=== PATIENT | female | born 1950 | race Caucasian/White ===

== ENCOUNTER 2017-07-17 10:40 | Outpatient (CLI) | payer MEDICARE, BC ==
--- NOTE | 2017-07-17 14:30 | CT Report ---
CT ABDOMEN AND PELVIS WITHOUT CONTRAST: 07/17/2017 CLINICAL INDICATION: Right-sided abdominal pain. TECHNIQUE: Axial CT images of the abdomen and pelvis were obtained without oral or intravenous contrast. COMPARISON: No previous CT is available for comparison. FINDINGS: Limited evaluation of the lung bases is unremarkable. ABDOMEN: Allowing for the lack of intravenous contrast enhancement, the liver, spleen, pancreas, kidneys and adrenal glands are unremarkable. No nephrolithiasis or hydronephrosis is seen. No hydroureter is present. The gallbladder is not dilated. No bowel dilatation, free gas, or free fluid is present. No abdominal adenopathy is seen. PELVIS: The patient is status post hysterectomy. No pelvic adenopathy or free fluid is present. Osseous structures demonstrate degenerative changes. IMPRESSION: NO EVIDENT ETIOLOGY FOR PATIENT'S RIGHT-SIDED PAIN. NO NEPHROLITHIASIS OR HYDRONEPHROSIS. CT DOSE REDUCTION STATEMENT In accordance with CT protocol optimization, one or more of the following dose reduction techniques were utilized for this exam: automated exposure control, adjustment of mA and/or KV based on patient size, or use of iterative reconstructive technique. TD: 07/17/2017 14:30
== END 2017-07-17 10:41 | disposition home or self-care (01) ==
LOC: DI 10:40
PROVIDERS: ATTEND Nurse Practitioner Family
DX: R10.9 Unspecified abdominal pain (principal)
CPT/HCPCS: 74176

== ENCOUNTER 2017-10-10 11:51 | Outpatient (CLI) | payer MEDICARE, BC ==
[2017-10-10 12:15] LABS: BASOPHILS % (AUTO) 0.9 %; EOSINOPHILS % (AUTO) 0.6 %; HGB - HEMOGLOBIN 8.4 g/dL (12.0-16.0); LYMPHOCYTES # (AUTO) 1.1 10^3/uL (1.5-3.5); LYMPHOCYTES % (AUTO) 29.4 %; MEAN CORPUSCULAR HEMOGLOBIN 21.7 pg (27.0-31.0); MEAN CORPUSCULAR HGB CONC 30.5 g/dL (32.0-36.0); MEAN CORPUSCULAR VOLUME 71.2 fL (81.0-99.0); MEAN RETIC VALUE 101.7; MONOCYTES # (AUTO) 0.2 10^3/uL (0.0-1.0); MONOCYTES % (AUTO) 4.6 %; NEUTROPHILS # (AUTO) 2.4 10^3/uL (1.5-6.6); NEUTROPHILS % (AUTO) 64.5 %; PLT - PLATELET COUNT 234 10^3/uL (130-450); RED BLOOD COUNT 3.88 10^6/uL (4.20-5.40); WHITE BLOOD COUNT 3.7 x10^3/uL (4.8-10.8)
[2017-10-10 12:33] LABS: PLATELET ESTIMATE, MANUAL NORMAL (130-450,000) (NORMAL); PLATELET MORPHOLOGY NORMAL APPEARANCE (NORMAL)
[2017-10-12 16:37] LABS: HAPTOGLOBIN 233 mg/dL (43-212)
[2017-10-16 21:21] LABS: METHYLMALONIC ACID 237 nmol/L (87-318)
== END 2017-10-10 11:52 | disposition home or self-care (01) ==
LOC: LAB 11:51
PROVIDERS: ATTEND Nurse Practitioner Family
DX: D64.9 Anemia, unspecified (principal)
CPT/HCPCS: 36415; 81599; 82784; 83010; 83921; 85025; 85044; 86880

== ENCOUNTER 2018-08-21 14:52 | Outpatient (CLI) | payer MEDICARE, BC ==
--- NOTE | 2018-08-22 15:18 | MRI Report ---
Reason: back pain Procedure Date: 08/21/2018 Accession Number: [id number] / [id number] Procedure: MRI - Thoracic Spine W/O CPT Code: FULL RESULT: EXAM: MRI THORACIC SPINE WITHOUT CONTRAST EXAM DATE: 08/21/2018 02:30 PM. CLINICAL HISTORY: Back pain and paresthesias. COMPARISONS: None. TECHNIQUE: Multiplanar, multisequence T1-weighted and fluid-sensitive sequences of the thoracic spine from C7 to L1 without contrast. Other: None. FINDINGS: Some of the images are degraded due to patient-related motion artifact. Spinal Canal: No signal abnormality in the visualized spinal cord. Alignment: Grade 1 anterolisthesis at T1-T2 and T2-T3 by approximately 1 mm. Bone Marrow: There are hemangiomas at the T5 and T6 vertebral bodies. No acute fracture. No marrow edema. Disk Levels/Facets: C7-T1: Mild to moderate left facet arthropathy. Mild to moderate left foraminal stenosis. T1-T2: Mild right and mild to moderate left facet arthropathy. Mild right and mild to moderate left foraminal stenoses. T2-T3: Mild to moderate facet arthropathy. Mild to moderate right and mild left foraminal stenoses. T3-T4: Mild to moderate facet arthropathy. Mild to moderate left and moderate right foraminal stenoses. T4-T5 Mild facet arthropathy. Mild to moderate right foraminal stenosis. T5-T6: Mild facet arthropathy. No stenoses. T6-T7: Mild to moderate right facet arthropathy. No stenoses. T7-T8: Small anterior osteophytes. Mild facet arthropathy. No stenoses. T8-T9: Small posterior left paracentral disk protrusion. Minimal canal narrowing. No foraminal stenoses. T9-T10: Mild to moderate right facet arthropathy. No stenoses. T10-T11: Small anterior osteophytes. Mild to moderate right facet arthropathy. Mild right foraminal stenosis. T11-T12: Unremarkable. T12-L1: Unremarkable. Musculature: Normal. No edema or fatty atrophy. Other: The visualized lungs, mediastinum, and abdominal cavity are unremarkable. IMPRESSION: 1. Multilevel facet arthropathy. 2. Mild to moderate left foraminal stenosis at C7-T1. Mild right and mild to moderate left foraminal stenosis at T1-T2. Mild to moderate right and mild left foraminal stenoses at T2-T3. Mild to moderate left and moderate right foraminal stenoses at T3-T4. T4-T5. RADIA
--- NOTE | 2018-08-22 15:24 | MRI Report ---
Reason: Back pain Procedure Date: 08/21/2018 Accession Number: [id number] / [id number] Procedure: MRI - Lumbar Spine W/O CPT Code: FULL RESULT: EXAM: MRI LUMBAR SPINE WITHOUT CONTRAST EXAM DATE: 08/21/2018 02:30 PM. CLINICAL HISTORY: Low back pain and paresthesias. COMPARISON: None. TECHNIQUE: Multiplanar, multisequence T1-weighted and fluid-sensitive sequences of the lumbar spine from T12 to S1 without contrast. Other: None. FINDINGS: Spinal Canal: The conus terminates at L1-L2. The conus medullaris and cauda equina are unremarkable. Alignment: Grade 1 anterolisthesis at L4-L5 by approximately 3 mm. Mild levoconvex scoliosis. Bone Marrow: Five xqh-lfb-hphfsst lumbar vertebral bodies are assumed. No gross fractures or bone lesions. No bone marrow replacement. 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 Transitional L5 vertebral segment. Mild facet arthropathy. No stenoses. L4-L5: Minimal disk bulge. Severe facet arthropathy. Mild canal stenosis. Mild to moderate right and moderate left foraminal stenoses. L3-L4: Small disk bulge. Mild to moderate facet arthropathy and ligamentum flavum thickening. Mild right and minimal left foraminal stenoses. L2-L3: Small posterior central disk protrusion. Minimal disk bulge. Mild facet arthropathy and small facet joint effusions. Mild canal stenosis. Mild right and minimal left foraminal stenoses. L1-L2: Unremarkable. Musculature: Normal. No edema or fatty atrophy. Other: The partially visualized retroperitoneum is unremarkable. IMPRESSION: 1. Note, transitional anatomy is present at the lumbosacral junction. For the purpose of this report, the transitional segment will be designated as L5 . Prior to any surgical intervention, an intraoperative lateral lumbar spine radiograph with a localizing instrument is recommended. This radiograph should be correlated with the sagittal MR images to avoid any confusion with respect to exact anatomic location. 2. Grade 1 degenerative anterolisthesis at L4-L5. Severe facet arthropathy. Mild canal stenosis. Mild to moderate right and moderate left foraminal stenoses. 3. Small disk bulge at L3-L4. Mild right and minimal left foraminal stenoses. 4. Small posterior central disk protrusion at L2-L3. Mild canal stenosis. Mild right and minimal left foraminal stenoses. Comment: The following findings are so common in adults without low back pain that while we report their presence, they must be interpreted with caution and in the context of the clinical situation. (Reference Randall et al, Spine 2001) Prevalence of findings in patients without low back pain: Disk degeneration (any evidence): 92% Disk desiccation/T2 signal loss: 83% Disk height loss: 56% Disk bulge: 64% Disk protrusion: 32% Annular tear/high intensity zone: 38% RADIA
== END 2018-08-21 14:53 | disposition home or self-care (01) ==
LOC: DI 14:52
PROVIDERS: ATTEND Surgery
DX: M47.9 Spondylosis, unspecified (principal); M51.24 Other intervertebral disc displacement, thoracic region; M48.04 Spinal stenosis, thoracic region; M51.26 Other intervertebral disc displacement, lumbar region; M43.16 Spondylolisthesis, lumbar region; M48.061 Spinal stenosis, lumbar region without neurogenic claudication
CPT/HCPCS: 72146; 72148

== ENCOUNTER 2019-02-04 10:22 | Outpatient (CLI) | payer MEDICARE, BC ==
--- NOTE | 2019-02-04 11:21 | Mammography Report ---
Reason: SCREENING FOR MALIGNANT NEOPLASM OF BREAST Procedure Date: 02/04/2019 Accession Number: [id number] / [id number] Procedure: MGS - Screening Mammo Dig Bilat CPT Code: FULL RESULT: EXAM: Screening Mammo Dig Bilat DATE: 02/04/2019 10:42 AM CLINICAL HISTORY: Routine screening. No reported personal or family history of breast cancer. TECHNIQUE: (B) - Bilateral CC and MLO views were obtained. COMPARISON: 01/24/2016 through 03/29/2010 PARENCHYMAL PATTERN: (D) - The breasts demonstrate heterogeneously dense fibroglandular parenchyma bilaterally. FINDINGS: Bilateral breasts: There are no suspicious masses, calcifications, or areas of distortion. IMPRESSION: Negative examination. BI-RADS category 1. RECOMMENDATION: (ANNUAL) - Recommend routine annual screening mammography. BI-RADS CATEGORY: STANDARD QUALIFYING STATEMENTS: 1. This examination was reviewed with the aid of Computer-Aided Detection (CAD). 2. A negative or benign imaging report should not preclude biopsy if clinically suspicious findings are present. 3. Dense breasts may obscure an underlying neoplasm. 4. This examination was reviewed without the aid of 3D breast imaging (tomosynthesis).
== END 2019-02-04 10:23 | disposition home or self-care (01) ==
LOC: DI.S 10:22
PROVIDERS: ATTEND Physician Assistant
DX: Z12.31 Encounter for screening mammogram for malignant neoplasm of breast (principal)
CPT/HCPCS: 77067

== ENCOUNTER 2020-12-08 11:02 | Outpatient (CLI) | payer MEDICARE, BC ==
--- NOTE | 2020-12-09 15:48 | Mammography Report ---
BILATERAL DIGITAL SCREENING MAMMOGRAM 3D/2D WITH EXAGGERATED CC: 12/08/2020 CLINICAL: Routine screening. Comparison is made to exams dated: 02/04/2019 mammogram, 01/24/2016 mammogram, 08/17/2014 mammogram, mammogram, 03/11/2012 mammogram, and 03/06/2011 mammogram - [facility]. The tissue of both breasts is predominantly fatty. No significant masses, calcifications, or other findings are seen in either breast. There has been no significant interval change. IMPRESSION: NEGATIVE There is no mammographic evidence of malignancy. A 1 year screening mammogram is recommended. This exam was interpreted at Station ID: [id number]. NOTE: For mammograms, a report in lay terms will be sent to the patient. Approximately 15% of breast malignancies will not be visualized mammographically. In the management of a palpable breast mass, a negative mammogram must not discourage biopsy of a clinically suspicious lesion. Electronically Signed By: Americo Giles M.D., jr/cathleen:12/08/2020 12:37:26 ACR BI-RADS Category 1: Negative 3341F PARENCHYMAL PATTERN: (F) - The breast(s) demonstrate(s) diffuse fatty replacement. BI-RADS CATEGORY: (1) - 1 RECOMMENDATION: (ANNUAL) - Recommend routine annual screening mammography. [id number] 1 year screening LATERALITY: (B)
== END 2020-12-08 11:03 | disposition home or self-care (01) ==
LOC: DI.S 11:02
DX: Z12.31 Encounter for screening mammogram for malignant neoplasm of breast (principal)

== ENCOUNTER 2021-03-04 12:18 | Emergency (ER) | payer MEDICARE, OTHER ==
--- NOTE | 2021-03-04 13:09 | ED Physician Documentation ---
PD HPI SYNCOPE - Stated complaint Stated Complaint: GLF - FOREHEAD LAC - Chief complaint Chief Complaint: Neuro - History obtained from History obtained from: Patient - History of Present Illness Witnessed: Witnessed Timing - onset: Today Duration: Seconds Preceding symptoms: Diaphoresis, Abdominal pain, Nausea / vomiting, Light headed, Other (diarrhea) Associated symptoms: Nausea / vomiting, Abdominal pain, Other (diarrhea) Contributing factors: Other (GI symptom complex started last night) Injury occurred: Fell, Head injury. No: Neck injury, Bit tongue Similar symptoms before: No diagnosis, Work up / diagnostics (extensive work up of symptoms has included GI work up, imaging and dietary modification.) Recently seen: Clinic (sent here from the walk in clinic with head injury headache syncope and N/V/D) - Additional information Additional information: 71-year-old female who has episodic abdominal pain associated with nausea vomiting diarrhea began to have an episode yesterday evening when she went to bed. She was kept awake by it most of the night this morning when she went to get onto the commode she had flow-through diarrhea, vomiting and she had a lot of abdominal cramping. She had a syncopal episode while she was sitting on the commode. She fell forward and struck her her head on a tile floor. She has a laceration to her head, she denies any neck pain, denies any numbness or tingling anywhere else. She has had these episodes of abdominal pain nausea and vomiting and diarrhea similarly over the past 3 years and she has had an exte nsive work-up of this. She indicates that the most likely reason she has these episodes has to do with some scar tissue in the right lower quadrant related to two prior C-sections and hysterectomy. She has had a modification of her diet to include absence of fiber. She does not know of anything specific that triggered the episode last night. Feels back to normal with a bad headache. Review of Systems Constitutional: denies: Fever Eyes: denies: Decreased vision Ears: denies: Ear pain Nose: denies: Congestion Throat: denies: Sore throat Cardiac: denies: Chest pain / pressure, Palpitations Respiratory: denies: Dyspnea, Cough GI: reports: Abdominal Pain, Nausea, Vomiting, Diarrhea : denies: Dysuria, Frequency Skin: reports: Laceration (s). denies: Rash Musculoskeletal: denies: Neck pain, Back pain, Extremity pain Neurologic: reports: Headache, Head injury, LOC. denies: Generalized weakness, Focal weakness, Numbness PD PAST MEDICAL HISTORY - Allergies Allergies/Adverse Reactions: Allergies Allergy/AdvReac Type Severity Reaction Status Date / Time codeine AdvReac Nausea Verified 03/04/21 12:32 PD ED PE NORMAL - Vitals Vital signs reviewed: Yes (hypertensive ) - General General: Alert and oriented X 3, No acute distress, Well developed/nourished, Other ([id number] female her left eyebrow and a black and blue eye is conversant and does not appear to be in pain.) - HEENT HEENT: PERRL, EOMI, Other (3cm laceration above the lateral aspect of the left eyebrow. ) - Neck Neck: Supple, no meningeal sign, No bony TTP - Cardiac Cardiac: RRR, No murmur - Respiratory Respiratory: No respiratory distress, Clear bilaterally - Abdomen Abdomen: Normal bowel sounds, Soft, Non tender, Non distended, No organomegaly - Back Back: No CVA TTP, No spinal TTP - Derm Derm: Normal color, Warm and dry, No rash - Extremities Extremities: No deformity, No edema - Neuro Neuro: Alert and oriented X 3, cyber policy and strategy planner 2-12 intact, No motor deficit, No sensory deficit, Normal speech Eye Opening: Spontaneous Motor: Obeys Commands Verbal: Oriented GCS Score: 15 - Psych Psych: Normal mood, Normal affect Results - Vitals Vitals: Vital Signs - 24 hr 03/04/21 03/04/21 12:28 14:32 Temperature 36.3 C L Heart Rate 84 75 Respiratory 16 14 Rate Blood Pressure 140/79 H 139/80 H O2 Saturation 98 100 Oxygen O2 Source Room air - EKG (time done) 1314 Rate: Rate (enter#) (74) Rhythm: NSR QRS: Poor R wave progression Ischemia: Q waves Compare to prior EKG: Old EKG unavailable Computer interpretation: Agree with computer - Labs Labs: Laboratory Tests 03/04/21 03/04/21 13:22 13:22 WBC 5.9 RBC 4.64 Hgb 12.4 Hct 39.8 MCV 85.8 MCH 26.7 L MCHC 31.2 L RDW 14.6 Plt Count 237 MPV 11.3 H Neut # (Auto) 4.7 Lymph # (Auto) 1.0 L [place] # (Auto) 0.3 Eos # (Auto) 0.0 Baso # (Auto) 0.0 Absolute Nucleated RBC 0.00 Nucleated RBC % 0.0 Sodium 139 Potassium 3.9 Chloride 104 Carbon Dioxide 25 Anion Gap 10.0 BUN 15 Creatinine 0.7 Estimated GFR (MDRD) 82 L Glucose 92 Calcium 9.1 Total Bilirubin 0.7 AST 22 ALT 21 Alkaline Phosphatase 87 Total Protein 6.9 Albumin 4.0 Globulin 2.9 Albumin/Globulin Ratio 1.4 Lipase 23 - Rads (name of study) CT head Radiology: Prelim report reviewed (Impression: CT head without acute intracranial abnormalities or acute calvarial fractures. Age-related senescent changes and sequela of chronic small vessel ischemic disease.), EMP read indepedently, See rad report Procedures - Laceration (location) left forehead Length in cm: 2 Wound type: Linear, Into subcut fat, Clean Neurovascular status: Sensory intact, Motor intact, Vascular intact Anesthesia: Lidocaine 1%, With bicarb Wound preparation: Hibiclens, Irrigated copiously NS, Wound explored, To the base Skin layer closure: Nylon, Interrupted, Size #-0 - enter number (5-0) Other: Patient tolerated well, No complications, Neurovascular intact, Dressing applied - IVC sono (time) 1310 Bedside IVC sono: IVC measures (cm) (1.01), IVC collapsed c insp (cm) (complete), Dehydration (est 1-2 litere deficit) PD MEDICAL DECISION MAKING - ED course Complexity details: reviewed results, re-evaluated patient, considered differential, d/w patient ED course: 71-year-old female with a syncopal episode while having a painful episode on the commode is a laceration above her left eye she has a significant headache associated with a head injury and loss of consciousness. She is no longer nauseous she is found to be dehydrated on interrogation the inferior vena cava. An IV line is begun she is administered intravenous saline and electrocardiograms obtained as well as some blood work and a CT scan of the head. All studies are reassuring. We did interrogate the inferior vena cava and found her to be dehydrated on the order of 1 to 2 L of saline she is given a liter of saline while awaiting her CT results. Sutured the patient's forehead she felt much improved. Her abdominal episode appears over at this time. She says this would be typical of her prior episodes. Departure - Departure Disposition: 01 Home, Self Care Clinical Impression: Dehydration Syncope Qualifiers: Syncope type: vasovagal syncope Qualified Code(s): R55 - Syncope and collapse Forehead laceration Qualifiers: Encounter type: initial encounter Qualified Code(s): S01.81XA - Laceration without foreign body of other part of head, initial encounter Condition: Stable Instructions: ED Laceration Facial Sutr Tape, ED Syncope Vasovagal, ED Dehydration Follow-Up: Miguel Venegas MD [Primary Care Provider] - Comments: Sutures will need to be removed in 5 to 7 days
[2021-03-04 13:34] LABS: BASOPHILS % (AUTO) 0.5 %; EOSINOPHILS % (AUTO) 0.2 %; HCT - HEMATOCRIT 39.8 % (37.0-47.0); HGB - HEMOGLOBIN 12.4 g/dL (12.0-16.0); LYMPHOCYTES % (AUTO) 16.3 %; MEAN CORPUSCULAR HEMOGLOBIN 26.7 pg (27.0-31.0); MEAN CORPUSCULAR HGB CONC 31.2 g/dL (32.0-36.0); MEAN CORPUSCULAR VOLUME 85.8 fL (81.0-99.0); MEAN PLATELET VOLUME 11.3 fL (7.9-10.8); MONOCYTES # (AUTO) 0.3 10^3/uL (0.0-1.0); MONOCYTES % (AUTO) 4.5 %; NEUTROPHILS # (AUTO) 4.7 10^3/uL (1.5-6.6); NEUTROPHILS % (AUTO) 78.3 %; PLT - PLATELET COUNT 237 10^3/uL (130-450); RED BLOOD COUNT 4.64 10^6/uL (4.20-5.40); RED CELL DISTRIBUTION WIDTH 14.6 % (12.0-15.0); WHITE BLOOD COUNT 5.9 x10^3/uL (4.8-10.8)
[2021-03-04 13:53] LABS: ALBUMIN/GLOBULIN RATIO 1.4 (1.0-2.2); BILIRUBIN,TOTAL 0.7 mg/dL (0.2-1.0); CALCIUM 9.1 mg/dL (8.5-10.3); CREATININE 0.7 mg/dL (0.4-1.0); POTASSIUM 3.9 mmol/L (3.5-5.0); TOTAL PROTEIN 6.9 g/dL (6.7-8.2)
[2021-03-04] MEDS ORDERED: SODIUM CHLORIDE 0.9% 1,000 ML IV STA (14:16)
[2021-03-04] MEDS ORDERED: BUFFERED LIDOCAINE 10 ML SYRINGE SUBQ STA (15:01)
[2021-03-04 15:22] VITALS: BP 139/80
--- NOTE | 2021-03-04 15:37 | CT Report ---
PROCEDURE: HEAD WO INDICATIONS: concussion headache TECHNIQUE: Noncontrast 4.5 mm thick angled axial sections acquired from the foramen magnum to the vertex. For r adiation dose reduction, the following was used: automated exposure control, adjustment of mA and/or kV according to patient size. COMPARISON: None. FINDINGS: Image quality: Excellent. CSF spaces: Basal cisterns are patent. No extra-axial fluid collections. Ventricles are normal in size and shape. Brain: No midline shift. No intracranial masses or hemorrhage. Gamino-white matter interface is norm al. Age-related senescent changes with diffuse cortical volume loss. Subcortical and periventricular white matter hypoattenuation compatible with sequela of chronic small vessel ischemic disease. Athero sclerotic calcifications of the intracranial segments of the bilateral internal carotid arteries. Skull and face: Calvarium and visualized facial bones are intact, without suspicious lesions. Sinuses: Visualized sinuses and mastoids are clear. IMPRESSION: CT head without acute intracranial abnormalities or acute calvarial fractures. Age-related senescent changes and sequela of chronic small vessel ischemic disease. Reviewed by: Woodrow Robb MD on 03/04/2021 3:36 PM PDT Approved by: Woodrow Robb MD on 03/04/2021 3:36 PM PDT Station ID: [id number]
[2021-03-04] MEDS ORDERED: TETANUS/DIPHTHERIA/PERTUSSIS 0.5 ML SYRINGE IM ONE (16:43)
== END 2021-03-04 17:00 | disposition home or self-care (01) ==
LOC: ED 12:18
DX: R55 Syncope and collapse (principal); E86.0 Dehydration; S01.81XA Laceration without foreign body of other part of head, initial encounter; S09.90XA Unspecified injury of head, initial encounter; W18.12XA Fall from or off toilet with subsequent striking against object, initial encounter; Y93.E8 Activity, other personal hygiene; Y92.002 Bathroom of unspecified non-institutional (private) residence as the place of occurrence of the external cause; R11.2 Nausea with vomiting, unspecified; R19.7 Diarrhea, unspecified
CPT/HCPCS: 12011; 36415; 80053; 83690; 85025; 93005; 99282

== ENCOUNTER 2021-08-16 14:01 | Outpatient (CLI) | payer MEDICARE, OTHER ==
--- NOTE | 2021-08-16 14:35 | XRAY Report ---
PROCEDURE: Chest 2 View X-Ray INDICATIONS: BRONCHITIS TECHNIQUE: 2 view(s) of the chest. COMPARISON: January 19, 2016 FINDINGS: SUPPORT DEVICES: None. LUNGS/PLEURA: No focal consolidation, pleural effusion or space-occupying pneumothorax. MEDIASTINUM: The cardiomediastinal silhouette is within normal limits. BONES/SOFT TISSUES: No acute abnormality. IMPRESSION: 1.No acute cardiopulmonary abnormality. Reviewed by: Patel Amos MD on 08/16/2021 2:34 PM PDT Approved by: Patel Amos MD on 08/16/2021 2:34 PM PDT Station ID: [id number]
== END 2021-08-16 14:02 | disposition home or self-care (01) ==
LOC: DI.S 14:01
PROVIDERS: ATTEND Nurse Practitioner Family
DX: J20.9 Acute bronchitis, unspecified (principal)

== ENCOUNTER 2021-09-20 03:46 | Outpatient (CLI) | payer MEDICARE, OTHER | END 2021-09-20 03:47 | disposition critical access hospital (66) | LOC: EMS 03:46 | DX: S09.90XA Unspecified injury of head, initial encounter (principal); S01.21XA Laceration without foreign body of nose, initial encounter; S01.81XA Laceration without foreign body of other part of head, initial encounter; W18.39XA Other fall on same level, initial encounter; Y92.002 Bathroom of unspecified non-institutional (private) residence as the place of occurrence of the external cause; R55 Syncope and collapse; R11.2 Nausea with vomiting, unspecified; R51.9 Headache, unspecified; M54.2 Cervicalgia | CPT/HCPCS: A0425; A0427 ==

== ENCOUNTER 2021-09-20 04:10 | Emergency (ER) | payer MEDICARE, OTHER ==
--- NOTE | 2021-09-20 04:52 | ED Physician Documentation ---
PD HPI SYNCOPE - Stated complaint Stated Complaint: N/V, SYNCOPE, HEAD INJURY - Chief complaint Chief Complaint: Neuro - History obtained from History obtained from: Patient - History of Present Illness Witnessed: Unwitnessed Timing - onset: How many minutes ago (approximately 30-40 minutes SHROUD LINE TIER) Preceding symptoms: None Associated symptoms: Headache Contributing factors: Just stood up Injury occurred: Fell Treatment SHROUD LINE TIER: C spine precautions Similar symptoms before: Has not had sx before Recently seen: Not recently seen - Additional information Additional information: patient woke up from sleep less than 1 hour SHROUD LINE TIER, got up to use bathroom and had syncopal episode. Patient does not recall any prodrome such as lightheadedness, diaphoresis, weakness. Spouse heard patient fall and found her on ground but responding, and he called 911. FSBS 130s per EMS. Patient c/o generalized headache as well as neck and upper back pain. She is in cervical collar placed by EMS. Denies h/o similar symptoms Review of Systems Constitutional: reports: Reviewed and negative Eyes: reports: Reviewed and negative Ears: reports: Reviewed and negative Nose: denies: Epistaxis Cardiac: reports: Reviewed and negative Respiratory: reports: Reviewed and negative GI: reports: Reviewed and negative Skin: reports: Laceration (s) (upper lip) Musculoskeletal: reports: Neck pain, Back pain. denies: Extremity pain, Joint pain, Extremity swelling, Joint swelling Neurologic: reports: Syncope, Headache, Head injury, LOC. denies: Generalized weakness, Focal weakness, Numbness PD PAST MEDICAL HISTORY - Past Medical History Past Medical History: Yes Psych: Depression, Anxiety - Past Surgical History Past Surgical History: Yes Ortho: Knee replacement /MANAGER OF DEVELOPMENT: section, Hysterectomy - Present Medications Home Medications: Ambulatory Orders Medication Instructions Recorded Confirmed Escitalopram [Lexapro] 10 mg PO DAILY 09/20/21 09/20/21 Zolpidem Tartrate [Ambien] 10 mg PO DAILY 09/20/21 09/20/21 - Allergies Allergies/Adverse Reactions: Allergies Allergy/AdvReac Type Severity Reaction Status Date / Time codeine AdvReac Nausea Verified 09/20/21 04:18 - Social History Does the pt smoke?: No Smoking Status: Never smoker Does the pt drink ETOH?: Yes Does the pt have substance abuse?: No - Immunizations Immunizations: TDAP >10years/unknown PD ED PE NORMAL - Vitals Vital signs reviewed: Yes - General General: Alert and oriented X 3, No acute distress, Well developed/nourished - HEENT HEENT: PERRL, EOMI, Moist mucous membranes - Cardiac Cardiac: RRR, No murmur, No gallop, No rub - Respiratory Respiratory: No respiratory distress, Clear bilaterally - Abdomen Abdomen: Soft, Non tender - Extremities Extremities: No deformity, No tenderness to palpate, Normal ROM s pain - Neuro Neuro: Alert and oriented X 3, stationary engineer 2-12 intact, No motor deficit, No sensory deficit, Normal speech Eye Opening: Spontaneous Motor: Obeys Commands Verbal: Oriented GCS Score: 15 PD ED PE EXPANDED - HEENT HEENT Visual: 1 - swelling, tenderness 2 - laceration (superficial 1cm) 3 - laceration (1 cm laceration , up to but not across petra border) Results - Vitals Vitals: Oxygen O2 Source Room air - EKG (time done) No standard instances Rate: Rate (enter#) (71) Rhythm: NSR Lewis: LAD Intervals: Normal CO QRS: Normal Ischemia: Normal ST segments, Q waves (II, III, aVF) - Labs Labs: Laboratory Tests 09/20/21 09/20/21 09/20/21 05:47 05:47 05:47 WBC 10.2 RBC 4.56 Hgb 12.2 Hct 39.4 MCV 86.4 MCH 26.8 L MCHC 31.0 L RDW 14.8 Plt Count 240 MPV 10.5 Neut # (Auto) 8.3 H Lymph # (Auto) 1.2 L [place] # (Auto) 0.5 Eos # (Auto) 0.0 Baso # (Auto) 0.0 Absolute Nucleated RBC 0.00 Nucleated RBC % 0.0 Sodium 138 Potassium 3.7 Chloride 100 L Carbon Dioxide 27 Anion Gap 11.0 BUN 18 Creatinine 0.8 Estimated GFR (MDRD) 71 L Glucose 118 H Calcium 9.4 Troponin I High Sens 2.8 - Rads (name of study) chest xray Radiology: Prelim report reviewed, See rad report CT head Radiology: Prelim report reviewed, See rad report CT cervical spine Radiology: Prelim report reviewed, See rad report Procedures - Laceration (location) Lip Length in cm: 1 Wound type: Linear, Clean Skin layer closure: Interrupted, Size #-0 - enter number (5-0), Other (vicryl) Other: Patient tolerated well, No complications PD MEDICAL DECISION MAKING - ED course Complexity details: reviewed results, re-evaluated patient, considered differential, d/w patient ED course: presents after syncopal episode with reassuring/unremarkable blood tests (including his-cTn), EKG, and CXR. She has a superficial linear nasal laceration which is well-approximated even with manipulation and thus this is not requiring repair. Upper lip laceration does gape and thus it is repaired (sutured). No acute findings on CTH, CT cervical spine. Results d/w patient, return precautions reviewed, instructed to follow up with PMD for suture removal as well as reevaluation for syncope Departure - Departure Disposition: 01 Home, Self Care Clinical Impression: Syncope Qualifiers: Syncope type: unspecified Qualified Code(s): R55 - Syncope and collapse Lip laceration Qualifiers: Encounter type: initial encounter Qualified Code(s): S01.511A - Laceration without foreign body of lip, initial encounter Condition: Good Instructions: ED Laceration Mouth, ED Fainting Unkn Cause Comments: The lip laceration was closed with three stitches. As we discussed, although these are dissolvable stitches, they typically take up to 30 days to dissolve which would be too long to leave in place. I recommend that you follow up with your primary care provider in one week for removal of the stitches. Discharge Date/Time: 09/20/21 08:49
[2021-09-20 05:59] LABS: BASOPHILS % (AUTO) 0.3 %; EOSINOPHILS % (AUTO) 0.2 %; HCT - HEMATOCRIT 39.4 % (37.0-47.0); HGB - HEMOGLOBIN 12.2 g/dL (12.0-16.0); LYMPHOCYTES # (AUTO) 1.2 10^3/uL (1.5-3.5); LYMPHOCYTES % (AUTO) 12.2 %; MEAN CORPUSCULAR HEMOGLOBIN 26.8 pg (27.0-31.0); MEAN CORPUSCULAR VOLUME 86.4 fL (81.0-99.0); MEAN PLATELET VOLUME 10.5 fL (7.9-10.8); MONOCYTES # (AUTO) 0.5 10^3/uL (0.0-1.0); MONOCYTES % (AUTO) 4.9 %; NEUTROPHILS # (AUTO) 8.3 10^3/uL (1.5-6.6); NEUTROPHILS % (AUTO) 81.9 %; PLT - PLATELET COUNT 240 10^3/uL (130-450); RED BLOOD COUNT 4.56 10^6/uL (4.20-5.40); RED CELL DISTRIBUTION WIDTH 14.8 % (12.0-15.0); WHITE BLOOD COUNT 10.2 x10^3/uL (4.8-10.8)
[2021-09-20 06:03] LABS: CALCIUM 9.4 mg/dL (8.5-10.3); CREATININE 0.8 mg/dL (0.4-1.0); POTASSIUM 3.7 mmol/L (3.5-5.0)
[2021-09-20] MEDS ORDERED: LIDOCAINE 1% 2 ML VIAL SUBQ STA (06:27)
[2021-09-20 08:49] VITALS: BP 133/70
--- NOTE | 2021-09-20 08:49 | CT Report ---
PROCEDURE: CERVICAL SPINE WO INDICATIONS: fall, neck pain TECHNIQUE: Noncontrast 3 mm thick sections acquired from the skull base to the T4 level. Sagittal and coronal r eformats were then constructed. For radiation dose reduction, the following was used: automated exp osure control, adjustment of mA and/or kV according to patient size. COMPARISON: None. FINDINGS: Image quality: Excellent. Bones: No fractures or dislocations. There is moderate degenerative disc disease at C4-C5 and C5-C6 . Bilateral facet arthropathy, most pronounced at C4-C5 and C5-C6 on the left. Visualized superior ri bs are intact. Soft tissues: Prevertebral soft tissues are normal in thickness. No paravertebral hematomas. No ap ical pneumothoraces. IMPRESSION: 1. No acute cervical spine injuries. 2. Degenerative changes in cervical spine. No significant discrepancy with the preliminary interpretation. Reviewed by: Pasha Medellin MD on 09/20/2021 8:47 AM PDT Approved by: Pasha Medellin MD on 09/20/2021 8:47 AM PDT Station ID: [id number]
--- NOTE | 2021-09-20 08:57 | CT Report ---
PROCEDURE: HEAD WO INDICATIONS: syncope, headache TECHNIQUE: Noncontrast 4.5 mm thick angled axial sections acquired from the foramen magnum to the vertex. For r adiation dose reduction, the following was used: automated exposure control, adjustment of mA and/or kV according to patient size. COMPARISON: CT head without, 03/04/2021. FINDINGS: Image quality: Excellent. CSF spaces: Basal cisterns are patent. No extra-axial fluid collections. Ventricles are normal in size and shape. Brain: No midline shift. No intracranial masses or hemorrhage. There is moderate cerebral volume l oss for age. Mild periventricular white matter chronic small vessel ischemic changes are present. Gra y-white matter interface is normal. Skull and face: Calvarium and visualized facial bones are intact, without suspicious lesions. Sinuses: Visualized sinuses and mastoids are clear. IMPRESSION: No acute intracranial abnormalities. No significant discrepancy with the preliminary interpretation. Reviewed by: Pasha Medellin MD on 09/20/2021 8:56 AM PDT Approved by: Pasha Medellin MD on 09/20/2021 8:56 AM PDT Station ID: [id number]
--- NOTE | 2021-09-20 09:28 | XRAY Report ---
PROCEDURE: Chest 1 View X-Ray INDICATIONS: syncope TECHNIQUE: One view of the chest was acquired. COMPARISON: Chest x-ray 2 views, 08/16/2021. FINDINGS: Surgical changes and devices: None. Lungs and pleura: No pleural effusions or pneumothorax. Lungs are clear. Mediastinum: Mediastinal contours appear normal. Heart size is normal. Bones and chest wall: No suspicious bony lesions. Overlying soft tissues appear unremarkable. IMPRESSION: No acute cardiopulmonary disease. No significant discrepancy with the preliminary interpretation. Reviewed by: Pasha Medellin MD on 09/20/2021 9:27 AM PDT Approved by: Pasha Medellin MD on 09/20/2021 9:27 AM PDT Station ID: [id number]
== END 2021-09-20 08:49 | disposition home or self-care (01) ==
LOC: EDUNIT# → ED 04:10
DX: S01.511A Laceration without foreign body of lip, initial encounter (principal); W19.XXXA Unspecified fall, initial encounter; R55 Syncope and collapse
CPT/HCPCS: 12011; 36415; 80048; 84484; 85025; 93005; 99283

== ENCOUNTER 2022-07-25 10:53 | Outpatient (CLI) | payer MEDICARE, OTHER ==
--- NOTE | 2022-07-26 10:04 | Mammography Report ---
BILATERAL DIGITAL SCREENING MAMMOGRAM 3D/2D WITH EXAGGERATED CC: 07/25/2022 CLINICAL: Routine screening. Comparison is made to exams dated: 12/08/2020 mammogram, 02/04/2019 mammogram, and 01/24/2016 mammogram - [facility]. Both breasts are heterogeneously dense, which may obscure small masses (category c / 51-75% glandular tissue). There are benign calcifications in both breasts. No significant masses, calcifications, or other findings are seen in either breast. There has been no significant interval change. IMPRESSION: BENIGN There is no mammographic evidence of malignancy. A 1 year screening mammogram is recommended. Based on the Tyrer Cuzick model (a risk assessment model) the patients lifetime risk is 4.8% and her 10 year risk is 3.9%. According to the ACR, ACS, and NCCN guidelines, an annual breast MRI exam chan g with mammogram is recommended if the patients lifetime risk is 20% or greater. This exam was interpreted at Station ID: [id number]. NOTE: For mammograms, a report in lay terms will be sent to the patient. Approximately 15% of breast malignancies will not be visualized mammographically. In the management of a palpable breast mass, a negative mammogram must not discourage biopsy of a clinically suspicious lesion. Electronically Signed By: Rosanna alejandra/cathleen:07/25/2022 18:07:53 letter sent: No_Letter ACR BI-RADS Category 2: Benign Finding(s) 3342F PARENCHYMAL PATTERN: (D) - The breast(s) demonstrate(s) heterogeneously dense fibroglandular kim jones. BI-RADS CATEGORY: (2) - 2 Mammogram [id number] 1 year screening LATERALITY: (B)
== END 2022-07-25 10:54 | disposition home or self-care (01) ==
LOC: DI.S 10:53
PROVIDERS: ATTEND Nurse Practitioner Family
DX: Z12.31 Encounter for screening mammogram for malignant neoplasm of breast (principal)

== ENCOUNTER 2023-10-02 07:21 | Day surgery (SDC) | payer MEDICARE, OTHER ==
[~2023-10-02 07:21] MED LIST: ceFAZolin 2 GM VIAL ONE
[2023-10-02] MEDS: LACTATED RINGERS 1,000 ML IV ONE ×2 (07:28→09:44)
[2023-10-02] MEDS ORDERED: LIDOCAINE 1%-EPI 1:100000 20 ML MDV ONE (07:35)
[2023-10-02] MEDS ORDERED: BUPIVACAINE 0.5% PF 10 ML VIAL ONE (07:36)
[2023-10-02] MEDS ORDERED: PROPOFOL 200 MG/20 ML VIAL IVP ONE (08:07)
[2023-10-02] MEDS ORDERED: MIDAZOLAM 2 MG/2 ML VIAL ONE (08:07)
[2023-10-02] MEDS ORDERED: LIDOCAINE-PF 2% 10 ML AMP SUBQ ONE (08:07)
[2023-10-02] MEDS ORDERED: ATROPINE ABBOJECT 1 MG/10 ML SYRINGE IVP PRN (08:08)
[2023-10-02] MEDS ORDERED: HYDROmorphone 0.5 MG/0.5 ML SYRINGE IVP PRN ×2 (08:08→10:08)
[2023-10-02] MEDS ORDERED: NALOXONE 0.4 MG/ML VIAL IVP PRN (08:08)
[2023-10-02] MEDS ORDERED: ONDANSETRON 4 MG/2 ML VIAL IVP PRN ×2 (08:08→10:08)
[2023-10-02] MEDS ORDERED: fentaNYL 100 MCG/2 ML VIAL ONE (08:08)
[2023-10-02] MEDS ORDERED: MORPHINE 2 MG/ML CARPUJECT IVP PRN (08:08)
[2023-10-02] MEDS ORDERED: fentaNYL 100 MCG/2 ML VIAL IVP PRN (08:08)
--- NOTE | 2023-10-02 08:08 | ANESTHESIA ---
Pre-Anesthesia VS, & Labs - Diagnosis right upper back lesion - Procedure excision of right upper back lesion Vital Signs: Temp Pulse Resp BP Pulse Ox O2 Flow Rate 36 C L 86 16 134/79 H 99 10/02/23 07:32 10/02/23 07:32 10/02/23 07:32 10/02/23 07:32 10/02/23 07:32 Height: 5 ft 7 in Weight (kg): 71.1 kg Body Mass Index: 24.5 BMI Classification: Normal - NPO >8 hours - Is Patient ?: No Home Medications and Allergies Home Medications: Ambulatory Orders Acyclovir [Zovirax] 200 mg PO DAILY 09/21/23 Imipramine HCl 50 mg PO DAILY 09/21/23 Omeprazole 20 mg PO DAILY 09/21/23 traZODone [Desyrel] 50 mg PO HS 09/21/23 Escitalopram [Lexapro] 10 mg PO DAILY 09/20/21 Acyclovir [Zovirax] 200 mg PO DAILY 09/21/23 Imipramine HCl 50 mg PO DAILY 09/21/23 Omeprazole 20 mg PO DAILY 09/21/23 traZODone [Desyrel] 50 mg PO HS 09/21/23 Allergies/Adverse Reactions: Allergies Allergy/AdvReac Type Severity Reaction Status Date / Time codeine AdvReac Nausea Verified 09/20/21 04:18 Anes History & Medical History - Anesthetic History Anesthesia Complications: reports: No previous complications - Medical History Cardiovascular: reports: None Pulmonary: reports: None Gastrointestinal: reports: GERD, Hiatal hernia Urinary: reports: Frequency Neuro: reports: None Musculoskeletal: reports: None Endocrine/Autoimmune: reports: None Skin: reports: None Smoking Status: Former smoker (quit 1978) Psychosocial: reports: Depression History of Cancer?: No - Surgical History General: reports: Colonoscopy, EGD Gynecologic: reports: section, Hysterectomy Orthopedic: reports: Knee replacement Exam General: Alert, Oriented x3, Cooperative, No acute distress Dental: WNL Mouth Openin Fingerbreadth Mallampati classification: III Thyromental Distance: less than 4 cm Mental/Cognitive Status: Alert/Oriented X3, Normal for patient Plan Anesthesia Type: General Consent for Procedure(s) Verified and Reviewed: Yes Code Status: Attempt Resuscitation ASA classification: 2-Mild systemic disease Is this case an emergency?: No
[2023-10-02] MEDS ORDERED: LACTATED RINGERS 1,000 ML IV SCH (09:00)
[2023-10-02] MEDS ORDERED: DEXAMETHASONE 4 MG/ML VIAL ONE (09:28)
[2023-10-02] MEDS ORDERED: ONDANSETRON 4 MG/2 ML VIAL ONE (09:28)
[2023-10-02] MEDS: BUPIVACAINE 0.5% PF 30 ML VIAL INFIL ONE (09:34)
--- NOTE | 2023-10-02 09:51 | OPERATIVE REPORT ---
Operative Report - General Procedure Date: 10/02/23 Planned Procedure: Excision large mass right mid upper back (lipoma suspected) Pre-Op Diagnosis: Large right mid upper back mass (symptomatic) Procedure Performed: Excision large right mid upper back lesionlipoma suspected (measured 11 x 14 cmincision 7 cm in length) Post Op Diagnosis: Large right mid upper back mass (symptomatic) - lipoma suspected - Procedure Note Primary Surgeon: Saqib Braxton MD Anesthesia Provider: Antwan Reynolds CRNA Anesthesia Technique: General LMA, Local (30 mL of half percent Marcaine) IV Fluids (mL): 500 Estimated Blood Loss (mL): 5 Drain/Tube Type: Other (None.) Indications: Enlarging symptomatic right upper mid back lesion Complications: None. - Other Other Information/Narrative: After verbal and written informed consent was obtained detailing the operation, the alternatives the operation including no operation, risks of infection, bleeding requiring transfusion with its risks, nerve injury, and and after I met with the patient confirming the surgery and the site of surgery, the patient was brought to the operative suite and placed supine on the operating table. Great care was taken to avoid pressure points to prevent pressure necrosis or nerve injury. Monitoring devices were applied along with TEDs and pneumatic compression stockings (to prevent DVT). The patient received preoperative antibiotics for surgical prophylaxis. Antwan Reynolds CRNA sedated and anesthetized the patient for the entire procedure. The patient was prepped and draped in the usual sterile manner. With the patient draped my initials were clearly visible. A "time in" then confirmed that the patient was identified with 3 identifiers (name, date, and medical record number), the history and physical was updated and in the chart, the signed consent confirming the procedure was in the chart, the patient was in the correct position, the aforementioned prophylactic measures were in place or given, we had the correct personnel and equipment to complete the procedure and that anesthesia and the surgical team were given an opportunity to express any concerns. With the agreement of everyone in the room we proceeded with the operation. A transverse incision was made overlying the mass and dissection was carried out down to the mass using a combination of sharp dissection and Bovie electrocautery. Meticulous hemostasis was achieved using Bovie electrocautery. Once I got down to the fatty tumor it was clear that this was more of a "caramel turtle" configuration in the sense that it was not 1 large around mass but rather a large mass that had infiltrated into the surrounding tissue. With tension and counter tension I was able to extricate this tumor out of all the small nooks and crannies that it had grown into. Once the majority of the mass was removed from the operative field I was able to examine these nooks and crannys for any residual fat which I then excised. The specimen was sent off the operative field and permission was given to send it to pathology. The cavity was examined and meticulous hemostasis was again noted. The wound was ir rigated with sterile saline andsubcutaneous tissues were approximated using simple 3-0 Vicryl suture. The skin incision was approximated with 4-0 Monocryl in a subcuticular fashion. The cavity and overlying skin was then injected using all of the half percent Marcaine. The skin was cleaned of its prep and Dermabond was applied. At this point a timeout was performed that confirmed that all counts were correct x2, the procedure that was performed, the blood loss, the IV fluids administered, the patient's condition, and any concerns of the operating team had. Having tolerated the procedure well, the patient was taken recovery room in good and stable condition. The plan is for outpatient discharge when the patient is adequately recovered. CPT 11100 This document was created in part using voice recognition technology. Because of the inherent limitations of the system, occasional same sounding word substitutions and grammatical errors do occur and persist despite proofreading. Please read this document for content.
[2023-10-02] MEDS ORDERED: HYDROcod/ACETAM 5/325 MG TABLET PO PRN (10:08)
--- NOTE | 2023-10-02 10:13 | ANESTHESIA POST OP EVALUATION ---
Anesthesia Post Eval - Post Anesthesia Eval Vitals: Last Vital Signs Temp 36.5 C 10/02/23 10:10 Pulse 77 10/02/23 10:10 Resp 13 10/02/23 10:10 BP 135/72 H 10/02/23 10:10 Pulse Ox 97 10/02/23 10:10 O2 Flow Rate CV Function Including HR & BP: Stable Pain Control: Satisfactory Nausea & Vomiting: Negative Mental Status: Baseline Respiratory Status: Airway Patent Hydration Status: Satisfactory Anesthesia Complications: None
[2023-10-02 11:01] VITALS: BP 123/65; O2SAT 96
== END 2023-10-02 07:22 | disposition home or self-care (01) ==
LOC: SDS 07:21
PROVIDERS: ATTEND Surgery
PROC: 0JB70ZZ Excision of Back Subcutaneous Tissue and Fascia, Open Approach (ICD-10-PCS; principal; 2023-10-02 08:30)
DX: D17.1 Benign lipomatous neoplasm of skin and subcutaneous tissue of trunk (principal); Z87.891 Personal history of nicotine dependence
CPT/HCPCS: 21931; J7120

== ENCOUNTER 2023-12-20 10:32 | Outpatient (CLI) | payer MEDICARE, OTHER ==
--- NOTE | 2023-12-21 15:34 | Mammography Report ---
BILATERAL DIGITAL DIAGNOSTIC MAMMOGRAM 3D/2D: 12/20/2023 CLINICAL: Diffuse left breast pain. Due for bilateral exam. Comparison is made to exams dated: 07/25/2022 mammogram, 12/08/2020 mammogram, 02/04/2019 mammogram, mammogram, and 08/17/2014 mammogram - [facility]. Both breasts are heterogeneously dense, which may obscure small masses (category c / 51-75% glandular tissue). No significant masses, calcifications, or other findings are seen in either breast. Specifically, no finding to explain the patient's pain. Mammograms are otherwise stable. IMPRESSION: NEGATIVE Bilateral mammograms are stable. There is no abnormality seen in the left breast to correspond with t he diffuse pain in the upper outer quadrant. There is no mammographic evidence of malignancy. Return to annual mammogram screening schedule is rec ommended. Findings and recommendations were conveyed to the patient at time of exam. Based on the Tyrer Cuzick model (a risk assessment model) the patient's lifetime risk is 4.5% and her 10 year risk is 4.0%. According to the ACR, ACS, and NCCN guidelines, an annual breast MRI exam chan g with mammogram is recommended if the patient's lifetime risk is 20% or greater. This exam was interpreted at Station ID: [id number]. NOTE: For mammograms, a report in lay terms will be sent to the patient. Approximately 15% of breast malignancies will not be visualized mammographically. In the management of a palpable breast mass, a negative mammogram must not discourage biopsy of a clinically suspicious lesion. Electronically Signed By: Rosanna alejandra/:12/20/2023 11:37:46 letter sent: No_Letter ACR BI-RADS Category 1: Negative 3341F PARENCHYMAL PATTERN: (D) - The breast(s) demonstrate(s) heterogeneously dense fibroglandular kim jones. BI-RADS CATEGORY: (1) - 1 Mammogram [id number] return to screening LATERALITY: (B)
== END 2023-12-20 10:33 | disposition home or self-care (01) ==
LOC: DI 10:32
DX: N64.4 Mastodynia (principal); R92.333 Mammographic heterogeneous density, bilateral breasts